=== PATIENT | female | born 1985 | race Caucasian/White ===

== ENCOUNTER 2019-01-08 17:46 | Emergency (ER) | payer OTHER ==
[2019-01-08] MEDS ORDERED: LORAZEPAM 0.5 MG TABLET ONE (18:37)
--- NOTE | 2019-01-08 20:00 | ER ---
Nurse's Notes [facility] Name: Jose Morales Age: 33 yrs Sex: Female : 1985 Arrival Date: 01/08/2019 Time: 17:47 Bed 14 Private MD: Diagnosis: Anxiety disorder, unspecified Presentation: 01/08 17:52 Presenting complaint: Patient states: I have a history of anxiety, have been off my sg medication for quite some time due to loss of employment and insurance. Lately I have had a very hard time sleeping, and controlling my anxiety at home and at work. Today someone came in to pay their water bill at my place of employment and he was speaking about Armageddon and I was unable to control my anxiety after that, I just know that the end is coming and there is no evidence of it happening soon, but I still have things I need to do. Im not suicidal. Transition of care: patient was not received from another setting of care. Onset of symptoms was January 08, 2019. Risk Assessment: Do you want to hurt yourself or someone else? Patient reports no desire to harm self or others. Initial Sepsis Screen: Does the patient meet any 2 criteria? No. Patient's initial sepsis screen is negative. Does the patient have a suspected source of infection? No. Patient's initial sepsis screen is negative. Care prior to arrival: None. 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 - Social history:: Smoking status: Patient/guardian denies using tobacco. - Ebola Screening: : Patient negative for fever greater than or equal to 101.5 degrees Fahrenheit, and additional compatible Ebola Virus Disease symptoms Patient denies exposure to infectious person Patient denies travel to an Ebola-affected area in the 21 days before illness onset No symptoms or risks identified at this time. Screenin:00 Abuse screen: Denies threats or abuse. Nutritional screening: No deficits noted. rb1 Tuberculosis screening: No symptoms or risk factors identified. Fall Risk None identified. Assessment: 18:00 General: Appears uncomfortable, Behavior is anxious, Denies fever, feeling ill. Pain: rb1 Denies pain. Neuro: Level of Consciousness is awake, alert, obeys commands, Oriented to person, place, time, situation. Cardiovascular: Capillary refill < 3 seconds is brisk in bilateral fingers. Respiratory: Airway is patent Respiratory effort is even, unlabored, Respiratory pattern is regular, symmetrical. GI: No signs and/or symptoms were reported involving the gastrointestinal system. : No signs and/or symptoms were reported regarding the genitourinary system. Derm: Skin is pink, warm \T\ dry. Musculoskeletal: Range of motion: intact in all extremities. 19:15 Reassessment: Patient appears in no apparent distress at this time. Patient and/or cc3 family updated on plan of care and expected duration. Pain level reassessed. Patient is alert, oriented x 3, equal unlabored respirations, skin warm/dry/pink. Received this female patient from morning shift ELVER Ulloa as a case of anxiety, currently patient is calm. No IV cannula in situ. 20:09 Reassessment: Patient appears in no apparent distress at this time. Patient and/or cc3 family updated on plan of care and expected duration. Pain level reassessed. Patient is alert, oriented x 3, equal unlabored respirations, skin warm/dry/pink. JOYCE Pablo discharged the patient home with prescription given. No IV cannula in situ. Patient left ER vitally stable and ambulatory. Vital Signs: 18:00 Pulse 93; Resp 20; Temp 97.9; Pulse Ox 100% on R/A; sg 19:17 BP 131 / 90; Pulse 79; Resp 17 S; Temp 98.4(O); Pulse Ox 100% on R/A; cc3 20:00 BP 136 / 80; Pulse 85; Resp 17 S; Pulse Ox 99% on R/A; cc3 18:00 pt requesting to have her BP taken after she completes her new patient registration formsg ED Course: 17:47 Patient arrived in ED. as 17:47 Arm band placed on. sg 18:00 Triage completed. sg 18:00 Patient has correct armband on for positive identification. Bed in low position. Call rb1 light in reach. Side rails up X 1. Pulse ox on. NIBP on. 18:05 Karlo Pablo PA is PHCP. [facility] 18:05 Davie Contreras MD is Attending Physician. [facility] 18:23 Laila Guy, RN is Primary Nurse. rb1 19:00 Report given to ELVER Santana. rb1 20:09 Patient did not have IV access during this emergency room visit. cc3 20:09 No provider procedures requiring assistance completed. cc3 Administered Medications: 18:25 Drug: Ativan 1 mg Route: PO; rb1 19:00 Follow up: Response: No adverse reaction; Anxiety decreased rb1 Outcome: 20:00 Discharge ordered by MD. [facility] 20:09 Patient left the ED. cc3 20:09 Discharged to home ambulatory. cc3 20:09 Condition: stable 20:09 Discharge instructions given to patient, Instructed on discharge instructions, follow up and referral plans. medication usage, Demonstrated understanding of instructions, follow-up care, medications, Prescriptions given X 1. Signatures: Catracho Oliva RN RN Karlo Pablo PA PA [facility] Shae Rodriguez as Laila Guy, RN RN rb1 Esther Mendoza cc3 Corrections: (The following items were deleted from the chart) 20:13 20:10 No provider procedures requiring assistance completed. cc3 cc3 20:13 20:10 Patient did not have IV access during this emergency room visit. cc3 cc3
--- NOTE | 2019-01-08 20:00 | EDPHYS ---
Physician Documentation [facility] Name: Jose Morales Age: 33 yrs Sex: Female : 1985 Arrival Date: 01/08/2019 Time: 17:47 Bed 14 Private MD: ED Physician Davie Contreras HPI: 01/08 18:10 This 33 yrs old Female presents to ER via Ambulatory with complaints of jmm Anxiety. 18:10 Onset: The symptoms/episode began/occurred 2 week(s) ago. This is a 33 year old female jmm with a history of anxiety and depression that presents to the ED with complaints of worsening anxiety over the past 2 week. Patient is fearful she will in her sleep. Patient states her symptoms worsened when she overhead another person talking about the apocalypse. Patient denies HI, denies SI. . 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 - Social history:: Smoking status: Patient/guardian denies using tobacco. - Ebola Screening: : Patient negative for fever greater than or equal to 101.5 degrees Fahrenheit, and additional compatible Ebola Virus Disease symptoms Patient denies exposure to infectious person Patient denies travel to an Ebola-affected area in the 21 days before illness onset No symptoms or risks identified at this time. ROS: 18:10 Constitutional: Negative for fever, chills, and weight loss, Cardiovascular: Negative jmm for chest pain, palpitations, and edema, Respiratory: Negative for shortness of breath, cough, wheezing, and pleuritic chest pain. 18:10 Psych: Positive for anxiety. 18:10 All other systems are negative. Exam: 18:10 Head/Face: atraumatic. Eyes: EOMI, no conjunctival erythema appreciated ENT: Moist jmm Mucus Membranes Neck: Trachea midline, Supple Chest/axilla: Normal chest wall appearance and motion. Cardiovascular: Regular rate and rhythm. No edema appreciated Respiratory: Normal respirations, no respiratory distress appreciated Abdomen/GI: Non distended, soft Back: Normal ROM Skin: General appearance color normal MS/ Extremity: Moves all extremities, no obvious deformities appreciated, no edema noted to the lower extremities Neuro: Awake and alert, normal gait 18:10 Constitutional: The patient appears alert, awake, anxious. 18:10 Psych: Behavior/mood is anxious, Affect is calm, Oriented to person, place, time, Patient has no thoughts/intents to harm self or others. Delusions/hallucinations are not present. Vital Signs: 18:00 Pulse 93; Resp 20; Temp 97.9; Pulse Ox 100% on R/A; sg 19:17 BP 131 / 90; Pulse 79; Resp 17 S; Temp 98.4(O); Pulse Ox 100% on R/A; cc3 20:00 BP 136 / 80; Pulse 85; Resp 17 S; Pulse Ox 99% on R/A; cc3 18:00 pt requesting to have her BP taken after she completes her new patient registration formsg MDM: 18:10 [facility] 19:59 Data reviewed: vital signs, nurses notes. Counseling: I had a detailed discussion with ashly the patient and/or guardian regarding: the historical points, exam findings, and any diagnostic results supporting the discharge/admit diagnosis, the need for outpatient follow up, to return to the emergency department if symptoms worsen or persist or if there are any questions or concerns that arise at home. ED course: Patient's symptoms alleviated in the ED. Patient states she will follow up with psychiatry for further evaluation. patient is given return precautions. patient understood and agrees with the plan of care. . Administered Medications: 18:25 Drug: Ativan 1 mg Route: PO; rb1 19:00 Follow up: Response: No adverse reaction; Anxiety decreased rb1 Disposition: 01/09 18:56 Co-signature as Attending Physician, Davie Contreras MD I agree with the assessment and kdr plan of care. Disposition: 01/08/19 20:00 Discharged to Home. Impression: Anxiety disorder, unspecified. - Condition is Stable. - Discharge Instructions: Panic Attacks. - Prescriptions for Hydroxyzine HCl 25 mg Oral Tablet - take 1 tablet by ORAL route every 6 hours As needed; 30 tablet. - Medication Reconciliation Form, Thank You Letter, Antibiotic Education, Prescription Opioid Use form. - Follow up: Private Physician; When: 2 - 3 days; Reason: Recheck today's complaints, Continuance of care, Re-evaluation by your physician. Signatures: Catracho Oliva RN RN Davie Contreras MD MD kdr Mickail, Joel, PA PA jmm Barber, Rebecca, RN RN [facility] Esther Mendoza cc3 Corrections: (The following items were deleted from the chart) 01/08 20:09 20:00 01/08/2019 20:00 Discharged to Home. Impression: Anxiety disorder, unspecified. cc3 Condition is Stable. Forms are Medication Reconciliation Form, Thank You Letter, Antibiotic Education, Prescription Opioid Use. Follow up: Private Physician; When: 2 - 3 days; Reason: Recheck today's complaints, Continuance of care, Re-evaluation by your physician. ashly
== END 2019-01-08 20:09 | disposition home or self-care (01) ==
LOC: ER 17:46
DX: F41.9 Anxiety disorder, unspecified (principal)
CPT/HCPCS: 99283